=== PATIENT | female | born 1975 | race African-American/Black ===

== ENCOUNTER → 2017-08-27 | Outpatient (CLI) | payer BC ==
[2014-09-14 10:38] VITALS: BP 133/66
[~2017-08-27] MED LIST: MAGN400T3 PO
--- NOTE | 2017-08-27 10:44 | RAD ---
DATE: 08/27/2017 EXAM: MAMMO EPHRAIM SCREENING BILATERAL HISTORY: Routine screening COMPARISON: Baseline study This study was interpreted with the benefit of Computerized Aided Detection (CAD). The breast parenchyma is heterogeneously dense, which could reduce sensitivity of mammography. Breast parenchyma level C. FINDINGS: 2-D and 3-D tomosynthesis imaging was performed in CC and MLO projections. No suspicious breast density or architectural distortion is seen. There are benign appearing lymph node type densities in the axillary tail regions. No suspicious microcalcifications are evident. IMPRESSION: There is no mammographic evidence of malignancy in either breast. BI-RADS CATEGORY: 2 BENIGN FINDING(S) RECOMMENDED FOLLOW-UP: 12M 12 MONTH FOLLOW-UP PQRS compliance statement: Patient information was entered into a reminder system with a target due date for the next mammogram. Mammography is a sensitive method for finding small breast cancers, but it does not detect them all and is not a substitute for careful clinical examination. A negative mammogram does not negate a clinically suspicious finding and should not result in delay in biopsying a clinically suspicious abnormality. "Our facility is accredited by the [employer] Mammography Program."
== END | disposition home or self-care (01) ==
LOC: MAMMO 08:32
PROVIDERS: ATTEND Family Medicine
DX: Z12.31 Encounter for screening mammogram for malignant neoplasm of breast (principal)
CPT/HCPCS: 77063; 77067

== ENCOUNTER → 2018-12-01 | Outpatient (CLI) | payer BC ==
[2014-09-14 10:38] VITALS: BP 133/66
[~2018-12-01] MED LIST changes: +IOHEXOL 240 MG/ML 50ML VIAL. ONE; +IOHEXOL 240 MG/ML 50ML VIAL. PO ONE; +IOHEXOL 300 MG/ML 75 ML VIAL. IV ONE
--- NOTE | 2018-12-01 14:20 | RAD ---
EXAM: Abdomen and pelvis CT with intravenous contrast. HISTORY: Diffuse pain. TECHNIQUE: Computed tomographic images of the abdomen and pelvis were obtained following the administration of 75 cc Omnipaque 300 intravenous contrast. Multiplanar reformatting was performed. *One or more of the following individualized dose reduction techniques were utilized for this examination: 1. Automated exposure control. 2. Adjustment of the mA and/or kV according to patient size. 3. Use of iterative reconstruction technique. COMPARISON: None. FINDINGS: Evaluation of the lower thorax is unremarkable. There is mild biliary ductal dilatation likely due to reservoir effect status post cholecystectomy. There is slight fatty infiltration of the liver along the falciform ligament. The pancreas, spleen, adrenal glands and kidneys are unremarkable. There is no appendicitis. There is no bowel obstruction. The uterus is surgically absent. The bladder is unremarkable. The left ovary appears to be positioned within the left lower quadrant and contains a follicular cyst measuring 2.2 cm. There are paired follicular cysts within the right ovary or single cyst with thin internal septation measuring 3.2 cm in conglomerate. There is no lymphadenopathy. There is postoperative scarring within the ventral abdominal wall. There is no suspicious osseous lesion. IMPRESSION: 1. Bilateral ovarian follicular cysts, described above. 2. Mild biliary ductal dilatation likely due to reservoir effect status post cholecystectomy. Electronically signed by: Gabby Baldwin MD (12/01/2018 2:17 PM) [place] [id number]
== END | disposition home or self-care (01) ==
LOC: CT 09:00
PROVIDERS: ATTEND Family Medicine
DX: N83.02 Follicular cyst of left ovary (principal); N83.01 Follicular cyst of right ovary; Z88.8 Allergy status to other drugs, medicaments and biological substances; Z90.49 Acquired absence of other specified parts of digestive tract; Z90.710 Acquired absence of both cervix and uterus
CPT/HCPCS: 74177; Q9966; Q9967

== ENCOUNTER → 2018-12-17 | Outpatient (CLI) | payer BC ==
[2014-09-14 10:38] VITALS: BP 133/66
[~2018-12-17] MED LIST changes: -IOHEXOL 240 MG/ML 50ML VIAL. ONE; -IOHEXOL 240 MG/ML 50ML VIAL. PO ONE; -IOHEXOL 300 MG/ML 75 ML VIAL. IV ONE; -MAGN400T3 PO; +MAGN400T5 PO
--- NOTE | 2018-12-17 11:50 | RAD ---
EXAM: Pelvic sonogram. HISTORY: Pain. TECHNIQUE: Transabdominal and transvaginal sonographic imaging of the pelvis was performed. COMPARISON: CT dated 12/01/2018. FINDINGS: The uterus is surgically absent. The ovaries are not seen. There is no adnexal mass or cyst. There is no free fluid. IMPRESSION: 1. Surgically absent uterus. 2. Obscured ovaries. Electronically signed by: Gabby Baldwin MD (12/17/2018 11:48 AM) [place] [id number]
== END | disposition home or self-care (01) ==
LOC: US 09:48
PROVIDERS: ATTEND Family Medicine
DX: R10.30 Lower abdominal pain, unspecified (principal); Z90.710 Acquired absence of both cervix and uterus
CPT/HCPCS: 76830; 76856

== ENCOUNTER 2019-09-23 00:18 | Emergency (ER) | payer BC ==
[~2019-09-23] VITALS: Ht 160 cm; Wt 68.0 kg
[2019-09-23] MEDS ORDERED: PRED20TA PO (00:31)
[2019-09-23] MEDS ORDERED: FAMO-63 PO (00:31)
[2019-09-23] MEDS ORDERED: DIPH25CA58 PO (00:31)
--- NOTE | 2019-09-23 00:31 | PHYS DOC ---
Past History Past Medical History: Depression, Endometriosis, Migraines Past Surgical History: Cholecystectomy, , Hysterectomy Smoking: Non-smoker Alcohol Use: None Drug Use: None General Adult EDM: Chief Complaint: Rash HPI: HPI: 44-year-old female presents with report of rash "all over ". Patient reports that she was seen initially on Friday last week at a walk-in clinic secondary to the rash and was given a dose of steroid and Diflucan and has been taking Benadryl since. Patient reports symptoms improved until this last weekend. Now symptoms have returned. Denies shortness of breath or wheezing. Denies known exposure. Denies new detergent, soaps, shampoos, or other new medications. Denies known sick contacts. Review of Systems: Review of Systems: Constitutional: Denies fever or chills Eyes: Denies redness or eye pain HENT: Denies nasal congestion or sore throat Respiratory: Denies cough or shortness of breath Cardiovascular: Denies chest pain or palpitations GI: Denies nausea or vomiting Musculoskeletal: Denies back pain or joint pain Integument: Reports rash; denies skin lesions Neurologic: Denies headache, focal weakness or sensory changes Complete systems were reviewed and found to be within normal limits, except as documented in this note. 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 No significant rash appreciated. No airway compromise. Vital signs stable. Symptomatic treatment provided with oral steroid, Benadryl, and Pepcid. Patient stable for discharge with outpatient follow-up with PCP. Discussed findings and plan with patient, who acknowledges understanding and agreement. Sumaya Disclaimer: Sumaya Disclaimer: This electronic medical record was generated, in whole or in part, using a voice recognition dictation system. Departure Departure: Impression: Primary Impression: Pruritic rash Disposition: HOME/RESIDENCE PRIOR TO ADM Condition: STABLE Referrals: DONALD CRAIG MD (PCP) VIR[place] CHRISTENSEN MD Patient Instructions: Rash, [id number] Scripts Famotidine (PEPCID) 20 Mg Tablet 1 TAB PO BID for Rash, #20 TAB Prov: HERB GILLETTE DO 09/23/19 Diphenhydramine Hcl (BENADRYL) 25 Mg Capsule 1 CAP PO Q4-6HRS PRN for RASH, #30 CAP 0 Refills Prov: HERB GILLETTE DO 09/23/19 Prednisone (PREDNISONE) 20 Mg Tablet 2 TAB PO DAILY for Rash, #10 TAB Prov: HERB GILLETTE DO 09/23/19 Justification of Admission: Justification of Admission: Justification of Admission Dx: N/A HERB GILLETTE DO Sep 23, 2019 00:31
[2019-09-23 00:59] VITALS: BP 145/101
[2019-09-23] MEDS ORDERED: DEXAMETHASONE 4 MG TABLET PO ONE (01:00)
[2019-09-23] MEDS ORDERED: diphenhydrAMINE HCL 25 MG CAPSULE PO ONE (01:00)
[2019-09-23] MEDS ORDERED: FAMOTIDINE 20 MG TABLET PO ONE (01:00)
== END 2019-09-23 00:50 | disposition home or self-care (01) ==
LOC: ER 00:18
DX: R21 Rash and other nonspecific skin eruption (principal); L29.9 Pruritus, unspecified; G43.909 Migraine, unspecified, not intractable, without status migrainosus
CPT/HCPCS: 99284; J8540; Q0163

== ENCOUNTER → 2021-05-14 | Outpatient (CLI) | payer BC ==
[~2021-05-14] MED LIST changes: +DIPH25CA58 PO; +FAMO-63 PO; +MAGN400T48 PO; -MAGN400T5 PO; +PRED20TA PO
--- NOTE | 2021-05-14 09:30 | RAD ---
3 views right knee 05/14/2021 9:21 AM Indication: Knee pain and swelling. Comparison: None Findings: There is no acute fracture or dislocation. Articular surfaces are uninterupted and smooth. Soft tissues are unremarkable. Impression: No evidence of acute osseous abnormality. Electronically signed by: Jose Eduardo Werner MD (05/14/2021 9:27 AM) [id number]
== END ==
LOC: PMG 09:10
PROVIDERS: ATTEND Nurse Practitioner Family
DX: M25.561 Pain in right knee (principal); M25.461 Effusion, right knee
CPT/HCPCS: 73562